=== PATIENT | female | born 1990 | race American Indian/Alaskan Native ===

== ENCOUNTER 2019-11-23 11:55 | Emergency (ER) | payer SELFPAY ==
--- NOTE | 2019-11-23 12:01 | Emergency Department Report ---
Blank Doc - Documentation Documentation: 29-year-old female that presents with abdominal pain with n/v. This initial assessment/diagnostic orders/clinical plan/treatment(s) is/are subject to change based on patient's health status, clinical progression and re- assessment by fellow clinical providers in the ED. Further treatment and workup at subsequent clinical providers discretion. Patient/guardians urged not to elope from the ED as their condition may be serious if not clinically assessed and managed. Initial orders include: 1- Patient sent to [facility] for further evaluation and treatment 2- labs 3- UA
[2019-11-23 12:02] VITALS: BP 140/94
[2019-11-23 13:10] LABS: Basophils % (Auto) 0.5 % (0.0-1.8); Eosinophils % (Auto) 0.3 % (0.0-4.3); Hematocrit 40.1 % (30.3-42.9); Hemoglobin 13.1 gm/dl (10.1-14.3); Lymphocytes # (Auto) 0.8 K/mm3 (1.2-5.4); Lymphocytes % (Auto) 11.7 % (13.4-35.0); Mean Corpuscular HGB Conc 33 % (30-34); Mean Corpuscular Volume 84 fl (79-97); Monocytes # (Auto) 0.4 K/mm3 (0.0-0.8); Monocytes % (Auto) 6.2 % (0.0-7.3); Platelet Count 265 K/mm3 (140-440); Red Blood Count 4.79 M/mm3 (3.65-5.03); Red Cell Distribution Width 13.7 % (13.2-15.2)
[2019-11-23 13:38] LABS: Alanine Aminotransferase 8 units/L (7-56); Albumin 3.9 g/dL (3.9-5); BUN/Creatinine Ratio 18; Blood Urea Nitrogen 11 mg/dL (7-17); Calcium 8.8 mg/dL (8.4-10.2); Hemolysis Index 6
[2019-11-23 15:43] LABS: Bilirubin,Urine NEG (Negative); Blood,Urine NEG (Negative); Color,Urine Yellow (Yellow); Mucus,Urine 2+ /HPF; WBC,Urine < 1.0 /HPF (0.0-6.0)
[2019-11-23] MEDS ORDERED: SODIUM CHLORIDE 0.9% 1000 ML 1,000 ML IV ONE (15:50)
[2019-11-23] MEDS ORDERED: HYOSCYAMINE SUBL 0.125 MG TAB SL ONE (15:50)
[2019-11-23] MEDS ORDERED: ONDANSETRON 4 MG/2 ML INJ IV STA (15:50)
--- NOTE | 2019-11-23 19:10 | Ultrasound Report ---
Abdominal ultrasound limited INDICATION: Right upper quadrant pain FINDINGS: The gallbladder contains multiple gallstones. No gallbladder wall thickening is appreciated . The liver is unremarkable. The right kidney is normal. No free fluid IMPRESSION: Cholelithiasis, as above Signer Name: Yuri Manzo MD Signed: 11/23/2019 7:05 PM Workstation Name: [id number]
== END 2019-11-23 18:49 | disposition left against medical advice (07) ==
LOC: ED 11:55
DX: R10.9 Unspecified abdominal pain (principal); Z53.21 Procedure and treatment not carried out due to patient leaving prior to being seen by health care provider
CPT/HCPCS: 36415; 76705; 80053; 81001; 83690; 84703; 85025